=== PATIENT | female | born 1965 | race Native Hawaiian/Other Pacific Islander ===

== ENCOUNTER 2017-05-24 07:57 | Outpatient (CLI) | payer BC | END 2017-05-24 18:57 | disposition home or self-care (01) | LOC: LABW 07:57 | DX: R73.03 Prediabetes (principal); E04.2 Nontoxic multinodular goiter; M81.0 Age-related osteoporosis without current pathological fracture | CPT/HCPCS: 36415; 82306; 82947; 84443 ==

== ENCOUNTER 2018-01-07 07:36 | Outpatient (CLI) | payer BC ==
[2018-01-07 08:28] LABS: PLATELET COUNT 294 K/uL (152-353)
[2018-01-07 09:19] LABS: POTASSIUM 4.3 mmol/L (3.6-5.2)
== END 2018-01-07 19:03 | disposition home or self-care (01) ==
LOC: LABW 07:36
PROVIDERS: Physician Assistant Medical
DX: E55.9 Vitamin D deficiency, unspecified (principal); R94.6 Abnormal results of thyroid function studies
CPT/HCPCS: 36415; 80048; 82306; 84439; 84443; 84481; 85027

== ENCOUNTER 2022-10-31 12:36 | Day surgery (SDC) | payer OTHER | END 2022-10-31 16:30 | disposition home or self-care (01) | LOC: OR 12:36 | PROVIDERS: ATTEND Internal Medicine Gastroenterology | DX: Z12.11 Encounter for screening for malignant neoplasm of colon (principal); K64.8 Other hemorrhoids; Z88.0 Allergy status to penicillin | CPT/HCPCS: J2704; J7120 ==